=== PATIENT | female | born 1980 | race Caucasian/White ===

== ENCOUNTER 2021-07-26 07:14 | Emergency (ER) | payer OTHER ==
--- NOTE | 2021-07-26 08:12 | EDM.PDOC ---
ED HPI GENERAL MEDICAL PROBLEM - General Chief Complaint: ENT Problem Stated Complaint: TOOTH PAIN Time Seen by Provider: 07/26/21 08:02 - History of Present Illness INITIAL COMMENTS - FREE TEXT/NARRATIVE: 41-year-old female presents the emergency room with dental pain. This started Saturday this last . Her dentist started her on clindamycin as she has a penicillin allergy 300 mg 3 times a day. This was recently incr eased to 600 mg 3 times a day as she was not really improving. This dosage increase occurred on Saturday, now 2 days ago. She denies any fevers or chills however she is taking near maximal doses of ibuprofen and Tylenol. She is also been using some tramadol and she is out of her Percocet. She was started on a steroid by the dentist it sounds like possibly a Medrol Dosepak. She complains of facial swelling. Right Lower Jaw Pain Score (Numeric/FACES): 8 - Related Data Allergies Allergy/AdvReac Type Severity Reaction Status Date / Time infliximab [From Remicade] Allergy Rash Verified 07/26/21 07:31 Penicillins Allergy Rash Verified 07/26/21 07:31 Home Meds: Home Meds Acetaminophen/oxyCODONE [Percocet 325-5 MG] 1 - 2 each PO Q6H PRN #15 tab 07/26/21 [Rx] Acetaminophen/oxyCODONE [Percocet 325-5 MG] 1 - 2 tab PO Q6H PRN #15 tab 07/26/21 [Rx] Acetaminophen/oxyCODONE [Percocet 325-5 MG] 1 - 2 tab PO QID PRN #15 tab 07/26/21 [Rx] Clindamycin HCl 07/26/21 [History] Steroid. 07/26/21 [History] oxyCODONE HCl/Acetaminophen [Oxycodone-Acetaminophen 5-325] 07/26/21 [History] traMADol [Ultram] 07/26/21 [History] Past Medical History - Past Health History Medical/Surgical History: Denies Medical/Surgical History - Infectious Disease History Infectious Disease History: Reports: Novel Coronavirus Social & Family History - Tobacco Use Tobacco Use Status *Q: Unknown Ever Used Tobacco ED ROS GENERAL - Review of Systems Review Of Systems: See Below Constitutional: Denies: Fever, Chills HEENT: Reports: Dental Pain Respiratory: Reports: No Symptoms Cardiovascular: Reports: No Symptoms GI/Abdominal: Reports: No Symptoms ED EXAM, GENERAL - Physical Exam Exam: See Below Exam Limited By: No Limitations General Appearance: Alert, No Apparent Distress Eye Exam: Bilateral Eye: Normal Inspection Ears: Normal External Exam, Normal Canal, Hearing Grossly Normal, Normal TMs Nose: Normal Inspection, Normal Mucosa, No Blood Throat/Mouth: Normal Inspection, Normal Lips, Normal Gums, Normal Oropharynx, Normal Voice, No Airway Compromise, Other (The affected tooth has a filling over it patient's been informed she needs a root canal.). No: Normal Teeth (No obvious abscess to drain. The tooth on her right lower third up from the back is somewhat tender minimal swelling on the medial aspect. With palpation on the external jaw there is a little bit of swelling but this is not blatantly obvious just from looking at it. ) Head: Facial Swelling (As stated above) Neck: Normal Inspection, Supple, Non-Tender, Full Range of Motion Respiratory/Chest: No Respiratory Distress, Lungs Clear, Normal Breath Sounds Cardiovascular: Regular Rate, Rhythm, No Edema, No Murmur Course - Vital Signs Last Recorded V/S: Last Vital Signs Temp 36.0 C L 07/26/21 07:32 Pulse 88 07/26/21 07:32 Resp 18 07/26/21 07:32 BP 134/96 H 07/26/21 07:32 Pulse Ox 97 07/26/21 07:32 - Re-Assessments/Exams Free Text/Narrative Re-Assessment/Exam: 07/26/21 08:22 Minimal findings on the exam no drainage no significant erythema minimal swelling noted. I have no great options for this patient at this point she is pen allergic describes water blisters on her legs last time she took it. Clindamycin is a great alternative sometimes it takes a little bit longer to get with the program but it should be starting to work with a dosage change on Saturday best recommendation is to continue with the clindamycin follow-up with her dentist today if possible. She is out of her Percocet I will give her a few more. Departure - Departure Time of Disposition: 08:23 Disposition: Home, Self-Care 01 Clinical Impression: Pain due to dental caries - Discharge Information Prescriptions: Acetaminophen/oxyCODONE [Percocet 325-5 MG] 1 - 2 each PO Q6H PRN #15 tab PRN Reason: Pain Acetaminophen/oxyCODONE [Percocet 325-5 MG] 1 - 2 tab PO QID PRN #15 tab PRN Reason: Pain Acetaminophen/oxyCODONE [Percocet 325-5 MG] 1 - 2 tab PO Q6H PRN #15 tab PRN Reason: Pain Referrals: Marek Melendrez MD [Primary Care Provider] - Additional Instructions: Return to the emergency room with any questions problems or worsening symptoms. Follow-up with your dentist preferably today. Use caution while using the steroids and the ibuprofen together in combination they can cause a lot of stomach trouble. Hopefully the clindamycin with the recent dosage increase will start to work a little bit better. I have given you a printed prescription for the Percocet Sepsis Event Note (ED) - Evaluation Sepsis Screening Result: No Definite Risk - Focused Exam Vital Signs: Vital Signs Temp Pulse Resp BP Pulse Ox 07/26/21 07:32 36.0 C L 88 18 134/96 H 97
== END 2021-07-26 08:50 | disposition home or self-care (01) ==
LOC: JD.ED 07:14
DX: K02.9 Dental caries, unspecified (principal); Z88.0 Allergy status to penicillin; Z88.8 Allergy status to other drugs, medicaments and biological substances; Z86.16 Personal history of COVID-19
CPT/HCPCS: 99282; 99283

== ENCOUNTER 2025-06-12 13:47 | Emergency (ER) | payer OTHER ==
[2025-06-12] MEDS: Sodium Chloride 0.9% 10 ML Syringe FLUSH PRN (14:26)
[2025-06-12 14:30] LABS: BASOPHILS ABSOLUTE AUTO 0.1 K/mm3 (0.0-0.2); BASOPHILS PERCENT AUTO 0.8 % (0.0-1.0); EOSINOPHILS ABSOLUTE AUTO 0.2 K/mm3 (0.0-0.4); EOSINOPHILS PERCENT AUTO 1.9 % (0.0-6.0); IMMATURE GRAN ABSOLUTE AUTO 0.03 K/mm3 (0.00-0.05); IMMATURE GRAN PERCENT AUTO 0.3 % (0.0-0.4); LYMPHOCYTES ABSOLUTE AUTO 1.8 K/mm3 (1.0-4.8); LYMPHOCYTES PERCENT AUTO 19.8 % (24.0-44.0); MEAN PLATELET VOLUME 11.3 fl (9.4-12.3); MONOCYTES ABSOLUTE AUTO 1.4 K/mm3 (0.0-0.8); MONOCYTES PERCENT AUTO 15.6 % (0.0-8.0); NEUTROPHILS ABSOLUTE AUTO 5.7 K/mm3 (1.8-7.7); NEUTROPHILS PERCENT AUTO 61.6 % (41.0-71.0); NRBC ABSOLUTE 0.00 (0.00-0.02); NRBC PERCENT 0.0 % (0.0-0.2); PLATELET COUNT,PLT 202 K/mm3 (150-400); RED BLOOD CELL COUNT 4.40 M/mm3 (4.10-5.30); WHITE BLOOD CELL COUNT,WBC 9.17 K/mm3 (3.9-11.3)
[2025-06-12 14:53] LABS: A/G RATIO 0.7 (1-2); ALANINE AMINOTRANSFERASE,ALT 16.0 U/L (14-59); ASPARTATE AMNIOTRANSFERASE,AST 11.0 U/L (15-37); BILIRUBIN TOTAL 0.5 mg/dL (0.2-1.0); BLOOD UREA NITROGEN,BUN 4.0 mg/dL (7-18); CARBON DIOXIDE,CO2 28.0 mEq/L (21-32); CHLORIDE,CL 102.0 mEq/L (98-107); CREATININE 0.8 mg/dL (0.55-1.02); EST CRCL DRUG DOSING (CG) 83.13 mL/min; ESTIMATED GFR 93.0 mL/min (>60); GLUCOSE RANDOM 261.0 mg/dL (70-99); POTASSIUM,K 2.9 mEq/L (3.5-5.1); PROTEIN TOTAL,TP 6.1 g/dl (6.4-8.2); SODIUM,NA 136.0 mEq/L (136-145)
[2025-06-12] MEDS: Sodium Chloride 0.9% 10 ML Syringe FLUSH ONE (15:44)
[2025-06-12] MEDS: Iopamidol 612 MG/ML 100 ML Bottle IVPUSH ONE (15:44)
[2025-06-12 15:48] LABS: APPEARANCE,URINE CLEAR (Clear); GLUCOSE,URINE TRACE (Negative); OCCULT BLOOD,URINE NEGATIVE (Negative)
[2025-06-12] MEDS: Potassium Chloride 20 MEQ Tab.ER PO ONE (16:56)
== END 2025-06-12 17:45 | disposition home or self-care (01) ==
LOC: JD.ED 13:47
DX: K52.9 Noninfective gastroenteritis and colitis, unspecified (principal); Z86.16 Personal history of COVID-19; Z79.899 Other long term (current) drug therapy; E11.9 Type 2 diabetes mellitus without complications; I10 Essential (primary) hypertension; E78.5 Hyperlipidemia, unspecified
CPT/HCPCS: 36415; 74177; 80053; 81003; 83690; 83735; 84703; 85025; 86140; 96360; 96361; 99284; A9270; J7030; Q9967

== ENCOUNTER 2025-06-16 20:03 | Inpatient (IN) | payer OTHER ==
[2025-06-16] MEDS ORDERED: Sodium Chloride 0.9% 10 ML Syringe FLUSH PRN (21:03)
[2025-06-16 21:16] LABS: BASOPHILS ABSOLUTE AUTO 0.1 K/mm3 (0.0-0.2); BASOPHILS PERCENT AUTO 0.7 % (0.0-1.0); EOSINOPHILS ABSOLUTE AUTO 0.1 K/mm3 (0.0-0.4); EOSINOPHILS PERCENT AUTO 1.4 % (0.0-6.0); IMMATURE GRAN ABSOLUTE AUTO 0.04 K/mm3 (0.00-0.05); IMMATURE GRAN PERCENT AUTO 0.5 % (0.0-0.4); LYMPHOCYTES ABSOLUTE AUTO 1.9 K/mm3 (1.0-4.8); LYMPHOCYTES PERCENT AUTO 21.1 % (24.0-44.0); MEAN PLATELET VOLUME 12.1 fl (9.4-12.3); MONOCYTES ABSOLUTE AUTO 1.2 K/mm3 (0.0-0.8); MONOCYTES PERCENT AUTO 13.4 % (0.0-8.0); NEUTROPHILS ABSOLUTE AUTO 5.6 K/mm3 (1.8-7.7); NEUTROPHILS PERCENT AUTO 62.9 % (41.0-71.0); NRBC ABSOLUTE 0.00 (0.00-0.02); NRBC PERCENT 0.0 % (0.0-0.2); PLATELET COUNT,PLT 249 K/mm3 (150-400); RED BLOOD CELL COUNT 4.42 M/mm3 (4.10-5.30); WHITE BLOOD CELL COUNT,WBC 8.85 K/mm3 (3.9-11.3)
[2025-06-16 21:25] LABS: A/G RATIO 0.6 (1-2); ALANINE AMINOTRANSFERASE,ALT 12.0 U/L (14-59); ASPARTATE AMNIOTRANSFERASE,AST 11.0 U/L (15-37); BILIRUBIN TOTAL 0.8 mg/dL (0.2-1.0); BLOOD UREA NITROGEN,BUN 5.0 mg/dL (7-18); CARBON DIOXIDE,CO2 25.0 mEq/L (21-32); CHLORIDE,CL 99.0 mEq/L (98-107); CREATININE 0.7 mg/dL (0.55-1.02); EST CRCL DRUG DOSING (CG) 95.01 mL/min; ESTIMATED GFR 109.0 mL/min (>60); GLUCOSE RANDOM 146.0 mg/dL (70-99); POTASSIUM,K 2.8 mEq/L (3.5-5.1); PROTEIN TOTAL,TP 7.0 g/dl (6.4-8.2); SODIUM,NA 136.0 mEq/L (136-145)
[2025-06-16] MEDS: diphenhydrAMINE 50 MG/ML SDV IVPUSH ONE (21:26)
[2025-06-16] MEDS: droPERidol 2.5 MG/ML SDV IV ONE (21:26)
[2025-06-16] MEDS: Iopamidol 612 MG/ML 100 ML Bottle IVPUSH ONE (21:38)
[2025-06-16 23:10] LABS: APPEARANCE,URINE CLEAR (Clear); GLUCOSE,URINE NEGATIVE (Negative); OCCULT BLOOD,URINE NEGATIVE (Negative)
[2025-06-16 23:16] LABS: EPITHELIAL CELLS,URINE 0-5 /hpf (0-5)
[2025-06-16] MEDS: Magnesium Sulfate 2 GM/50 mL 2 GM in Premix Bag 1 BAG IV ONE (23:31)
[2025-06-17 07:55] LABS: A/G RATIO 0.5 (1-2); ALANINE AMINOTRANSFERASE,ALT 9.0 U/L (14-59); ASPARTATE AMNIOTRANSFERASE,AST 11.0 U/L (15-37); BILIRUBIN TOTAL 0.4 mg/dL (0.2-1.0); BLOOD UREA NITROGEN,BUN 3.0 mg/dL (7-18); CARBON DIOXIDE,CO2 20.0 mEq/L (21-32); CHLORIDE,CL 109.0 mEq/L (98-107); CREATININE 0.6 mg/dL (0.55-1.02); EST CRCL DRUG DOSING (CG) 110.84 mL/min; ESTIMATED GFR 113.0 mL/min (>60); GLUCOSE RANDOM 111.0 mg/dL (70-99); POTASSIUM,K 3.4 mEq/L (3.5-5.1); PROTEIN TOTAL,TP 5.7 g/dl (6.4-8.2); SODIUM,NA 141.0 mEq/L (136-145)
[2025-06-17] MEDS: Cholestyramine/Sucrose Powder 4 GM Packet PO SCH (20:47)
[2025-06-18 04:52] LABS: MEAN PLATELET VOLUME 11.3 fl (9.4-12.3); NRBC ABSOLUTE 0.00 (0.00-0.02); NRBC PERCENT 0.0 % (0.0-0.2); PLATELET COUNT,PLT 216 K/mm3 (150-400); RED BLOOD CELL COUNT 3.77 M/mm3 (4.10-5.30); WHITE BLOOD CELL COUNT,WBC 7.67 K/mm3 (3.9-11.3)
[2025-06-18 05:31] LABS: A/G RATIO 0.5 (1-2); ALANINE AMINOTRANSFERASE,ALT 12.0 U/L (14-59); ASPARTATE AMNIOTRANSFERASE,AST 10.0 U/L (15-37); BILIRUBIN TOTAL 0.4 mg/dL (0.2-1.0); BLOOD UREA NITROGEN,BUN 2.0 mg/dL (7-18); CARBON DIOXIDE,CO2 17.0 mEq/L (21-32); CHLORIDE,CL 109.0 mEq/L (98-107); CHOLESTEROL HDL 26.0 mg/dL (40-59); CHOLESTEROL LDL DIRECT 47.0 mg/dL (<100); CHOLESTEROL TOTAL 92.0 mg/dL (<200); CREATININE 0.6 mg/dL (0.55-1.02); EST CRCL DRUG DOSING (CG) 110.84 mL/min; ESTIMATED GFR 113.0 mL/min (>60); GLUCOSE RANDOM 110.0 mg/dL (70-99); POTASSIUM,K 3.4 mEq/L (3.5-5.1); PROTEIN TOTAL,TP 5.7 g/dl (6.4-8.2); SODIUM,NA 138.0 mEq/L (136-145)
[2025-06-18] MEDS: Ondansetron 4 MG/2 ML SDV IV PRN (05:56)
[2025-06-18] MEDS ORDERED: BUDESONIDE 3 MG PO SCH ×2 (09:00→09:04)
[2025-06-18] MEDS: Leflunomide 20 MG Tablet **PTOM PO SCH (09:12)
[2025-06-18] MEDS: BUDESONIDE 3 MG PO SCH (14:35)
[2025-06-19 06:37] LABS: A/G RATIO 0.5 (1-2); ALANINE AMINOTRANSFERASE,ALT 14.0 U/L (14-59); ASPARTATE AMNIOTRANSFERASE,AST 11.0 U/L (15-37); BILIRUBIN TOTAL 0.3 mg/dL (0.2-1.0); BLOOD UREA NITROGEN,BUN 0.0 mg/dL (7-18); CARBON DIOXIDE,CO2 20.0 mEq/L (21-32); CHLORIDE,CL 108.0 mEq/L (98-107); CREATININE 0.5 mg/dL (0.55-1.02); EST CRCL DRUG DOSING (CG) 133.01 mL/min; ESTIMATED GFR 118.0 mL/min (>60); GLUCOSE RANDOM 127.0 mg/dL (70-99); POTASSIUM,K 2.9 mEq/L (3.5-5.1); PROTEIN TOTAL,TP 5.7 g/dl (6.4-8.2); SODIUM,NA 139.0 mEq/L (136-145)
[2025-06-19] MEDS: Potassium Chloride 20 MEQ Tab.ER PO SCH (08:10)
[2025-06-19] MEDS: Potassium Chloride 20 MEQ Tab.ER PO ONE ×2 (09:58→12:45)
== END 2025-06-19 16:27 | disposition home or self-care (01) | DRG 440 ==
LOC: JD.ED 20:03 → JD.MS 23:45
PROVIDERS: ADMIT Internal Medicine; ATTEND Family Medicine
DX: K85.90 Acute pancreatitis without necrosis or infection, unspecified (principal); E87.6 Hypokalemia; E83.42 Hypomagnesemia; I10 Essential (primary) hypertension; E78.5 Hyperlipidemia, unspecified; M79.7 Fibromyalgia; E11.9 Type 2 diabetes mellitus without complications; L40.50 Arthropathic psoriasis, unspecified; K52.831 Collagenous colitis; Z88.0 Allergy status to penicillin; Z88.8 Allergy status to other drugs, medicaments and biological substances; Z79.899 Other long term (current) drug therapy; Z79.52 Long term (current) use of systemic steroids; Z86.16 Personal history of COVID-19
CPT/HCPCS: 36415; 74177; 74177-26; 80053; 80061; 81001; 82947; 83690; 83735; 84100; 84132; 84703; 85025; 85027; 87507; 93005; 93010; 96361; 96374; 96375; 99284; 99285-25; A9270-GY; J1171; J1200; J1650; J1790; J2405; J3475; J3480; J3490; J7030; Q9967